=== PATIENT | female | born 1970 | race Two or more races ===

== ENCOUNTER 2021-07-06 19:13 | Emergency (ER) | payer OTHER ==
[~2021-07-06] VITALS: Ht 152.4 cm; Wt 87.6 kg
[~2021-07-06 19:13] MED LIST: ASPI-867 PO; METO-411 PO
[2021-07-07 00:35] VITALS: BP 155/66
== END 2021-07-07 01:05 | disposition home or self-care (01) ==
LOC: ER 19:13
DX: U07.1 COVID-19 (principal); I10 Essential (primary) hypertension; Z20.822 Contact with and (suspected) exposure to COVID-19
CPT/HCPCS: 99283; C9803; U0003; U0005

== ENCOUNTER 2022-02-19 13:25 | Emergency (ER) | payer OTHER ==
[~2022-02-19] VITALS: Ht 160 cm; Wt 73.0 kg
[2022-02-19 15:13] LABS: CHLORIDE 104 mEq/L (98-107)
[2022-02-19 15:37] LABS: EOSINOPHILS % 0.1 % (0.0-5.0); HEMOGLOBIN. 8.1 g/dL (12.0-16.0); LYMPHOCYTES % 18.3 % (20.0-50.0); MEAN CORPUSCULAR HEMOGLOBIN 13.7 pg (28.0-32.0); MEAN CORPUSCULAR VOLUME 52.4 fL (81.0-99.0); MONOCYTES % 4.7 % (2.0-8.0); NEUTROPHILS % 75.9 % (40.0-76.0); RED BLOOD CELL COUNT 5.92 mill/uL (4.2-5.4); RED CELL DISTRIBUTION WIDTH 23.4 % (11.6-14.6)
[2022-02-19 17:03] LABS: PLATELET ESTIMATE NORMAL
[2022-02-19 17:05] LABS: MEAN PLATELET VOLUME 8.9 fl (7.4-10.4); PLATELET 354 x1000/uL (130-400)
[2022-02-19] MEDS ORDERED: FERR324T4 MT (18:39)
[2022-02-19 18:41] VITALS: BP 155/86
[2022-02-19 19:24] LABS: CHLORIDE 104 mEq/L (98-107)
== END 2022-02-19 19:06 | disposition home or self-care (01) ==
LOC: ER 13:25
DX: M79.642 Pain in left hand (principal); M79.641 Pain in right hand; R60.0 Localized edema; I10 Essential (primary) hypertension
CPT/HCPCS: 36415; 80048; 85025; 99283

== ENCOUNTER 2022-04-13 03:24 | Emergency (ER) | payer OTHER ==
[~2022-04-13] VITALS: Ht 162.6 cm; Wt 82.0 kg
[~2022-04-13 03:24] MED LIST changes: +FERR324T4 MT
[2022-04-13] MEDS ORDERED: ASPIRIN 81MG TABLET PO ONE (03:45)
[2022-04-13] MEDS ORDERED: DILTIAZEM HCL 5MG/ML 5ML VIAL IV ONE (03:45)
[2022-04-13 04:34] LABS: BASOPHILS % 1.1 % (0.0-2.0); EOSINOPHILS % 1.1 % (0.0-5.0); HEMATOCRIT. 35.9 % (36.0-48.0); HEMOGLOBIN. 10.5 g/dL (12.0-16.0); MEAN CORPUSCULAR HEMOGLOBIN 16.4 pg (28.0-32.0); MEAN CORPUSCULAR VOLUME 56.4 fL (81.0-99.0); MONOCYTES % 6.7 % (2.0-8.0); NEUTROPHILS % 62.1 % (40.0-76.0); RED BLOOD CELL COUNT 6.37 mill/uL (4.2-5.4)
[2022-04-13 04:55] LABS: CHLORIDE 104 mEq/L (98-107)
[2022-04-13 05:04] LABS: MEAN PLATELET VOLUME 8.8 fl (7.4-10.4); PLATELET 495 x1000/uL (130-400)
[2022-04-13 05:10] LABS: CLARITY URINE CLEAR (CLEAR); COLOR URINE YELLOW (YELLOW); KETONES URINE NEGATIVE (NEGATIVE); LEUKOCYTE ESTERASE URINE NEGATIVE (NEGATIVE); NITRITE URINE NEGATIVE (NEGATIVE); OCCULT BLOOD URINE 1+ (NEGATIVE); PROTEIN URINE 3+ (NEGATIVE); SPECIFIC GRAVITY URINE 1.008 (1.005-1.030); UROBILINOGEN URINE 0.2 E.U./dL (0.2-1.0)
[2022-04-13] MEDS ORDERED: POTASSIUM CHLORIDE INJ 40 MEQ in DEXT 5% WATER 250 ML IV ONE (05:30)
[2022-04-13] MEDS ORDERED: KCL 20MEQ/100ML PREMIX 100 ML IV SCH (05:45)
[2022-04-13 08:30] VITALS: BP 139/67
== END 2022-04-13 08:55 | disposition short-term general hospital (02) ==
LOC: ER 03:24 → CANBEDREQ 07:19 → ER 08:55
DX: I48.91 Unspecified atrial fibrillation (principal); I10 Essential (primary) hypertension; Z20.822 Contact with and (suspected) exposure to COVID-19
CPT/HCPCS: 36415; 71045; 80053; 81003; 83690; 83880; 84443; 84484; 85025; 87426; 93005; 96365; 96366; 96375; 99285; C9803; J3480; J3490; J7060; Z7610